=== PATIENT | male | born 1980 | race Caucasian/White ===

== ENCOUNTER 2016-08-22 01:08 | Inpatient (IN) | payer OTHER ==
--- NOTE | ~2016-08-22 | PA ---
Unit #: [id number] #: [id number] Patient: DIPTI GODWIN [id number] [facility] [address] [place] [address] [id number] I MR#: [id number] NAME: DIPTI GODWIN ROOM: P202 Age: 36 Sex: M Admission Date: 08/22/2016 : 1980 Date of Assessment: Attending Physician: Cole Landa M.D. Admitting Physician: Cole Landa M.D. Primary Care Physician: Primary Care Physician No PSYCHIATRIC ASSESSMENT INFORMANT The patient reliability, fair; chart reliability, good. CHIEF COMPLAINT Suicidal ideation and alcohol abuse. HISTORY OF PRESENT ILLNESS Mr. Ramos is a 36-year-old male, seen on . The patient has a history of previous inpatient treatment for suicidal ideation in 2012. The patient reported suicidal ideation with a plan to be hit by a car. The patient reported that he found by the EMS. The patient reported feeling of hopelessness and worthlessness. The patient reported having no family social support system. The patient reports his parents committed suicide several years ago. The patient reported history of suicide attempt, last attempt was 2012. The patient reports he drinks about a fifth of alcohol a day. The patient's . Currently, the patient has a history of alcohol withdrawal seizure denied any homicidal ideation or psychotic symptom, needing inpatient admission at this time for psychiatric stabilization. PAST PSYCHIATRIC HISTORY Remarkable for history of previous treatment as mentioned above. FAMILY HISTORY AND SOCIAL HISTORY History of suicide attempt in both parents. No history of any abuse. MEDICAL HISTORY Remarkable for history of seizure disorder. Musculoskeletal, muscle strength and tone, no atrophy or abnormal movement. Gait normal. MEDICATION HISTORY None. ALLERGIES No known drug allergies. SUBSTANCE ABUSE HISTORY The patient reported tobacco use, age of onset 14; alcohol, age of onset 17; and has tried LSD, synthetic drugs. The patient reports history of blackouts. No history of any HIV, hepatitis, or any withdrawal symptom at this time, but history of withdrawal seizures. No history of any IV drug use. Unit #: [id number] #: [id number] Patient: DIPTI GODWIN REVIEW OF SYSTEMS HEENT: Eyes, clear. Ears, nose, mouth, and throat; clear. CARDIOVASCULAR: Unremarkable. RESPIRATORY: Unremarkable. GI: Unremarkable. : Unremarkable. SKIN: Unremarkable. LYMPH NODE: Unremarkable. NEUROLOGIC: Unremarkable. ENDOCRINE: Unremarkable. HEMATOLOGIC: Unremarkable. ALLERGIC: Unremarkable. IMMUNOLOGIC: Unremarkable. MUSCULOSKELETAL: Muscle strength and tone, no atrophy or abnormal movement. Gait normal. MENTAL STATUS EXAMINATION CONSTITUTIONAL: Measurement of vital signs; temperature 98.4, pulse 77, respirations 20, and blood pressure 119/77, height 5 feet 4 inches, and weight 130 pounds. GENERAL APPEARANCE: The patient dressed casually. The patient did not show any facial deformity. MUSCULOSKELETAL: Please see above. PSYCHIATRIC EXAMINATION Description of speech; regular rate, normal volume. Description of thought process, goal directed. Description of association, intact. Description of abnormal psychotic thinking; the patient denied any hallucination or delusions, but mood lability, suicidal ideation, depression, substance abuse. Description of the patient's judgment, concerning everyday activity, poor. Social situation, poor. Concerning psychiatric condition, poor. Complete mental status examination; oriented in time, place, and person. Recent and remote memory, fair. Attention span and concentration, fair. Language, able to name object and repeat phrases. Fund of knowledge, aware of current event, passive vocabulary intact. Mood and affect, sad and dysphoric. Insight and judgment, fair to poor. ASSETS AND LIABILITIES Assets; the patient is articulate, able to take care of his ADL. Liability; history of substance abuse. ADMITTING DIAGNOSES Psychiatric: Major depressive disorder, recurrent, severe, F33.2; alcohol use disorder, severe, F10.20. Secondary diagnosis: Deferred. Medical diagnosis: History of seizure. Stressors: Psychosocial stressors. PSYCHIATRIC PLAN AND TREATMENT GOAL AND DISCHARGE PLAN 1. Advised to admit the patient on the inpatient unit. Provide safe, supportive, and structured environment. 2. Ordered labs; CBC, CMP, UA, and UDS. 3. Detox protocol and detox monitoring. The patient was started on Unit #: [id number] #: [id number] Patient: DIPTI GODWIN for sleep and Celexa for depression. We will continue to monitor if needed consider further adjustment of medication. 4. The patient to attend group therapy, individual therapy, chemical dependency group. 5. Treatment goal; to attain euthymic mood, gain insight into his problem, and learn coping skills. 6. Discharge plan; plan to stabilize the patient and consider followup in outpatient program. ESTIMATED LENGTH OF STAY 3 to 5 days. Dictated by... Abelardo Bello/yassine TD: 08/22/2016 22:04 JOB #: [id number] PSYCHIATRIC ASSESSMENT Page 1 of 1 X Cole Landa MD PSYCHIATRIC ASSESSMENT
--- NOTE | ~2016-08-22 | HP ---
Unit #: [id number] #: [id number] Patient: DIPTI GODWIN [id number] [place] [address] [id number] I MR#: [id number] NAME: DIPTI GODWIN ROOM: P202 Age: 36 Sex: M Admission Date: 08/22/2016 : 1980 Attending Physician: Cole Landa M.D. Admitting Physician: Cole Landa M.D. Primary Care Physician: Primary Care Physician No HISTORY AND PHYSICAL HISTORY OF PRESENT ILLNESS Dipti is a 36 year old admitted to [address] [place] [address] because of his abuse of alcohol. He is detoxing. PAST MEDICAL HISTORY 1. Long history of alcohol abuse. 2. History of withdrawal seizures. PAST SURGICAL HISTORY Nothing reported. ALLERGIES No known drug allergies. SOCIAL HISTORY Smokes one pack per day. Drinks a fifth of liquor on a daily basis. Denies illicit drug use. FAMILY HISTORY Medically noncontributory. REVIEW OF SYSTEMS CONSTITUTIONAL: No fever or chills. HEENT: Denies any sore throat, ear pain or runny nose. CARDIOVASCULAR: Denies chest pain, irregular heart rhythm or palpitations. CHEST: Denies shortness of breath or cough. No hemoptysis. GASTROINTESTINAL: Denies nausea, vomiting, diarrhea or chronic constipation. ENDOCRINE: Denies history of increased thirst or urination. No recent significant weight loss or gain. GENITOURINARY: Denies dysuria, frequency, or hematuria. SKIN: Denies any rashes. HEMATOLOGIC: Denies history of increased bleeding or bruising. MUSCULOSKELETAL: Denies any hot, swollen joints. No generalized muscle pain. NEUROLOGIC: Denies problems with vision or speech. No frequent, severe headaches. No numbness, tingling or weakness in any extremities. Denies loss of bladder or bowel control. CURRENT MEDICATIONS 1. Detox protocol 2. Desyrel 50 mg q.h.s. Unit #: [id number] #: [id number] Patient: DIPTI GODWIN 3. Celexa 20 mg q.h.s. PHYSICAL EXAMINATION GENERAL: Alert, well-nourished, in no apparent distress. VITAL SIGNS: Blood pressure 120/76, heart rate 80, respirations 16, temperature 98.6. WEIGHT: 130 pounds. HEIGHT: 5'4". SKIN: Warm and dry without rash or lesion. HEENT: Normocephalic. TMs not viewed. Oral and nasal passages clear. Conjunctivae clear. Pupils equal, round and reactive to light and accommodation. Extraocular movements intact. NECK: Supple without lymphadenopathy or thyromegaly. HEART: Regular rate and rhythm without murmur. LUNGS: Clear. ABDOMEN: Soft, nontender. : Not done. EXTREMITIES: No evidence of cyanosis, clubbing or edema. Moves all extremities without focal deficit. NEUROLOGICAL: Grossly within normal limits. Cranial Nerves: II: Visual sargent are intact. III, IV AND : Extraocular movements are intact. Pupils are equal, round and reactive to light. V: Facial sensation is grossly normal. VII: Facial movements and expression are normal. VIII: Auditory acuity grossly intact. IX, X: Uvula is midline. Phonation is normal. XI: Patient shrugs shoulders and turns head normally. XII: Tongue protrudes in the midline. Sensory and Motor Function: Sensory and motor sensation is grossly normal. Motor: moves all extremities well. Coordination: Gait is normal. Deep Tendon Reflexes: Intact. IMPRESSION Psychiatric admission RECOMMENDATIONS PSYCHIATRIC: Per psychiatrist. MEDICAL: I see no contraindications to participating in facility's activities. MEDICAL PROGNOSIS Good. MEDICAL CONDITION Stable. Dictated by... Bernarda FrenandoARosemary-Lisa. for Abelardo Rivas/juan TD: 08/22/2016 21:13 JOB #: [id number] Unit #: [id number] #: [id number] Patient: DIPTI GODWIN HISTORY AND PHYSICAL Page 1 of 1 X Emely Agee HISTORY AND PHYSICAL
--- NOTE | ~2016-08-22 | PN ---
Unit #: [id number] #: [id number] Patient: DIPTI GODWIN [id number] [facility] [address] [place] [address] [id number] I MR#: [id number] NAME: DIPTI GODWIN ROOM: P202 Age: 36 Sex: M Admission Date: 08/22/2016 : 1980 Attending Physician: Cole Landa M.D. Admitting Physician: Cole Landa M.D. Primary Care Physician: Primary Care Physician Gerri ZAMARRIPA PROGRESS NOTES DATE 08/24/2016 DISCUSSION Mr. Ramos is a 36-year-old male seen on 08/24/2016. Patient interviewed. Chart reviewed. Obtained information from nursing staff. Patient was isolative, guarded, flat affect. Patient was able to maintain safe behavior. Vital signs stable, 98.3, 83, 114/68. Patient reported making progress. Complete review of system unremarkable. MENTAL STATUS EXAMINATION General appearance, patient dressed casually. Attention span, concentration fair. Oriented in place and person. Mood and affect sad, dysphoric, flat affect, guarded. Patient denied any thoughts of harming self or others or any psychotic symptoms. Recent and remote memory poor. Insight and judgement poor. DIAGNOSES 1. Major depressive disorder, recurrent. 2. Alcohol use disorder, severe. ASSESSMENT/PLAN Advised to continue with current medication and therapeutic protocol. If needed, consider further adjustment of medication. Dictated by... Abelardo Bello/sidra TD: 08/25/2016 15:44 JOB #: [id number] Unit #: [id number] #: [id number] Patient: DIPTI GODWIN MARILOU PROGRESS NOTES Page 1 of 1 X Cole Landa MD X PROGRESS NOTE
--- NOTE | ~2016-08-22 | DS ---
Unit #: [id number] #: [id number] Patient: DIPTI GODWIN [id number] [facility] [address] [place] [address] [id number] I MR#: [id number] NAME: DIPTI GODWIN ROOM: [facility] Age: 36 Sex: M Admission Date: 08/22/2016 : 1980 Discharge Date: 08/25/2016 Attending Physician: Cole Landa M.D. DISCHARGE SUMMARY REASON FOR ADMISSION Suicidal ideation, detox, and depression. DIAGNOSTIC STUDIES LABORATORY RESULTS: Unremarkable. HOSPITAL COURSE The patient was admitted to inpatient unit on 08/22/2016 and discharged on 08/25/2016. The patient was treated on the inpatient unit with chemical dependency group, expressive therapy, medication management, psychotherapy, and psychoeducation. The patient responded well with the above modalities of treatment and following medication. DISCHARGE MEDICATIONS Celexa 20 mg daily for depression and trazodone 100 mg at bedtime for sleep. DISCHARGE DIAGNOSES Psychiatric: Major depressive disorder, recurrent, severe, F33.2 and alcohol use disorder, severe, F10.20. Secondary diagnosis: Deferred. Medical diagnosis: History of seizure. Stressors: Psychosocial stressors. DISCHARGE INSTRUCTIONS The patient to follow up in outpatient clinic as per social science manager. CONDITION ON DISCHARGE The patient was pleasant and cooperative. Denied any psychotic symptom or any suicidal ideation. PROGNOSIS Guarded. DIET AND ACTIVITY As tolerated. Dictated by... Cole Landa M.D. Unit #: [id number] #: [id number] Patient: DIPTI GODWIN JUSTOC/modl TD: 08/26/2016 18:07 JOB #: [id number] DISCHARGE SUMMARY Page 1 of 1 X Cole Landa MD X DISCHARGE SUMMARY
--- NOTE | ~2016-08-22 | PN ---
Unit #: [id number] #: [id number] Patient: DIPTI GODWIN [id number] [facility] [address] [place] [address] [id number] I MR#: [id number] NAME: DIPTI GODWIN ROOM: P202 Age: 36 Sex: M Admission Date: 08/22/2016 : 1980 Attending Physician: Cole Lanad M.D. Admitting Physician: Cole Landa M.D. Primary Care Physician: Primary Care Physician Gerri RODRIGUEZ NOTES DATE OF SERVICE: 08/23/2016 DISCUSSION Dipti is a 36-year-old male, seen on 08/23/2016. The patient interviewed, chart reviewed, and obtained information from nursing staff. The patient was compliant and cooperative. Mood was sad, dysphoric, flat affect, guarded. The patient reported having trouble falling asleep, staying asleep, seclusive, isolative. Complete review of systems unremarkable. MENTAL STATUS EXAMINATION General appearance, the patient dressed casually. Attention span and concentration, fair. Oriented in place and person. Mood and affect; sad, dysphoric, withdrawn. Speech, monotone. Thought process, concrete. The patient denied any thoughts of harming self or others, but guarded. Recent and remote memory, poor. Insight and judgment, poor. DIAGNOSES 1. Major depressive disorder, recurrent, severe. 2. Alcohol use disorder, severe. ASSESSMENT AND PLAN Advised to continue with current medication and therapeutic protocol. We will monitor response to medication and make further adjustment of medication. Dictated by... Abelardo Bello/yassine TD: 08/24/2016 14:27 JOB #: [id number] Unit #: [id number] #: [id number] Patient: DIPTI GODWIN MARILOU RODRIGUEZ NOTES Page 1 of 1 X Cole Landa MD PROGRESS NOTE
== END 2016-08-25 16:28 | disposition home or self-care (01) | DRG 885 ==
LOC: P2S 01:08
PROC: HZ2ZZZZ Detoxification Services for Substance Abuse Treatment (ICD-10-PCS; principal; 2016-08-22)
DX: F33.2 Major depressive disorder, recurrent severe without psychotic features (principal); F10.20 Alcohol dependence, uncomplicated; F17.200 Nicotine dependence, unspecified, uncomplicated
CPT/HCPCS: 86592

== ENCOUNTER 2016-12-02 19:00 | Inpatient (IN) | payer MEDICAID ==
[~2016-12-02] VITALS: Ht 165.1 cm; Wt 61.2 kg
--- NOTE | ~2016-12-02 | PN ---
Unit #: [id number] #: [id number] Patient: DIPTI GODWIN [id number] [place] [address] [id number] I MR#: [id number] NAME: DIPTI GODWIN ROOM: P173 Age: 36 Sex: M Admission Date: 12/03/2016 : 1980 Attending Physician: Cole Landa M.D. Admitting Physician: Cole Landa M.D. Primary Care Physician: Generic Doctor Not In System [facility] [employer] NOTES DATE OF SERVICE 12/05/2016 DISCUSSION Mr. Ramos is a 36-year-old male. The patient interviewed, chart reviewed. Obtained information from nursing staff. The patient was compliant, cooperative. Still isolative, guarded, flat affect. Sad, dysphoric mood, withdrawn, isolative. Tolerating medication fairly well. The patient's vital signs stable, 98.4, 95, 121/91. Complete Review of Systems: Unremarkable. MENTAL STATUS EXAMINATION General Appearance: The patient dressed casually. Attention span, concentration: Fair. Oriented in place and person. Mood and affect labile. Speech: Monotone. Thought process: [place]. The patient denied any thoughts of harming self or others but withdrawn, isolative, guarded. Still reporting having withdrawal symptoms from alcohol. MENTAL STATUS EXAMINATION General Appearance: The patient dressed casually. Attention span, concentration: Fair. Oriented in time, place, and person. Mood and affect labile. Speech: Monotone. Thought process: [place]. The patient denied any thoughts of harming self or others. Recent and remote memory: Poor. Insight and judgment: Poor. DIAGNOSES 1. Mood disorder not otherwise specified. 2. Alcohol use disorder, severe. ASSESSMENT/PLAN Advised to continue with current treatment on the inpatient unit. If needed, consider further adjustment of medication. Dictated by... Cole Landa M.D. NADER/ernie TD: 12/06/2016 09:04 JOB #: [id number] Unit #: [id number] #: [id number] Patient: DIPTI GODWIN [facility] PROGRESS NOTES Page 1 of 1 X Cole Landa MD NOTE
--- NOTE | ~2016-12-02 | PN ---
Unit #: [id number] #: [id number] Patient: DIPTI GODWIN [id number] [facility] [address] [place] [address] [id number] I MR#: [id number] NAME: DIPTI GODWIN ROOM: 73 Age: 36 Sex: M Admission Date: 12/03/2016 : 1980 Attending Physician: Cole Landa M.D. Admitting Physician: Cole Landa M.D. Primary Care Physician: Generic Doctor Not In System [facility] PROGRESS NOTES DATE 12/04/2016 DISCUSSION Mr. Ramos is a 36-year-old male seen on 12/04/2016. The patient interviewed, chart reviewed. Obtained information from nursing staff. The patient was compliant and cooperative. Mood sad, dysphoric, flat affect, withdrawn, isolative. The patient still reporting feeling sad, depressed. The patient tolerating medication fairly well but still withdrawn, isolative, guarded. Complete review of systems unremarkable. MENTAL STATUS EXAMINATION General appearance, the patient dressed casually. Attention span and concentration fair. Oriented to place and person. Mood and affect sad, depressed having passive SI, withdrawn, isolative. Recent and remote memory poor. Insight and judgement poor. The patient having passive SI. DIAGNOSES 1. Major depressive disorder recurrent severe. 2. Alcohol use disorder severe. The patient is still having withdrawal symptoms. Therefore continue with the current detox protocol. The patient vital signs are 98.7, 97, 129/87. ASSESSMENT/PLAN Advise to continue with current medication and therapeutic protocol. If needed consider further adjustment of medication. Dictated by... Abelardo Bello/juan TD: 12/05/2016 23:42 JOB #: [id number] Unit #: [id number] #: [id number] Patient: DIPTI GODWIN [facility] PROGRESS NOTES Page 1 of 1 X Cole Landa MD PROGRESS NOTE
--- NOTE | ~2016-12-02 | PN ---
Unit #: [id number] #: [id number] Patient: DIPTI GODWIN [id number] [facility] [address] [place] [address] [id number] MR#: [id number] NAME: DIPTI GODWIN ROOM: P173 Age: 36 Sex: M Admission Date: 12/03/2016 : 1980 Attending Physician: Cole Landa M.D. Admitting Physician: Cole Landa M.D. Primary Care Physician: Generic Doctor Not In System [facility] PROGRESS NOTES DATE 12/09/2016 DISCUSSION Mr. Ramos is a 36-year-old male, seen on 12/09/2016. The patient interviewed, chart reviewed, and obtained information from the nursing staff. The patient wants larger portions. The patient reports that he is feeling better, still isolative, guarded, flat affect, sad and dysphoric, currently receiving antibiotic for his chest infection. REVIEW OF SYSTEMS Complete review of systems unremarkable. MENTAL STATUS EXAMINATION General appearance: Patient dressed casually. Attention span and concentration, fair. Oriented in time, place, and person. Mood and affect, sad and dysphoric, flat affect. Speech, regular rate. Thought process, goal-directed. The patient denied any thoughts of harming self or others but still seclusive, isolative, guarded. Recent and remote memory, poor. Insight and judgment, poor. DIAGNOSES 1. Alcohol use disorder, severe. 2. Mood disorder, NOS. ASSESSMENT/PLAN Advised to continue with the current medication and therapeutic protocol, and if needed consider further adjustment of medication. Dictated by... Abelardo Bello/kieran TD: 12/11/2016 07:33 JOB #: [id number] Unit #: [id number] #: [id number] Patient: DIPTI GODWIN [facility] PROGRESS NOTES Page 1 of 1 X Cole Landa MD PROGRESS NOTE
--- NOTE | ~2016-12-02 | PA ---
Unit #: [id number] #: [id number] Patient: DIPTI GODWIN [id number] [facility] [address] [place] [address] [id number] I MR#: [id number] NAME: DIPTI GODWIN ROOM: P173 Age: 36 Sex: M Admission Date: 12/03/2016 : 1980 Date of Assessment: 12/03/2016 Attending Physician: Cole Landa M.D. Admitting Physician: Cole Landa M.D. Primary Care Physician: Generic Doctor Not In System PSYCHIATRIC ASSESSMENT DATE OF SERVICE 12/03/2016. INFORMANTS The patient's reliability, fair; chart reliability, good. CHIEF COMPLAINT Alcohol abuse, depression. HISTORY OF PRESENT ILLNESS Mr. Ramos is a 36-year-old male, last admitted on 08/22 with suicidal ideation and depression, presented with the above-mentioned complaint. The patient reported drinking as a mean to cope loneliness, depression, feeling hopeless and worthless. Reported drinking half a gallon of vodka yesterday and woke up in the midafternoon behind bushes. The patient reports that he has withdrawal seizure. But has not been able to fill his prescription. The patient reported in the emergency room wanted to detox and get some help. The patient denied any suicidal ideation or homicidal ideation, but sad and depressed. The patient needing inpatient admission at this time for psychiatric stabilization. The patient reported tobacco use, age of onset 14; alcohol, age of onset 17; marijuana, age of onset 17; synthetic drugs, spice recent use; longest period of sobriety, 18 months; last period of sobriety, 11/24/2016. 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 The patient reported history of blackout. No history of HIV, hepatitis. No history of any IV drug abuse. Reported nervousness, tremor, has withdrawal symptom muscle cramping, diarrhea, poor concentration. Needing inpatient admission at this time for psychiatric stabilization. PAST PSYCHIATRIC HISTORY Remarkable for history of previous treatment at [facility] as mentioned above. FAMILY HISTORY AND SOCIAL HISTORY Poor support system, unemployed. No history of any abuse. The patient reported history of substance abuse in mom and dad. No legal charges. MEDICAL HISTORY Remarkable for history of withdrawal seizures, history of scoliosis. Musculoskeletal; muscle strength and tone, no atrophy or abnormal movement. Gait normal. MEDICATION HISTORY Unit #: [id number] #: [id number] Patient: DIPTI GODWIN None. ALLERGIES No known drug allergies. SUBSTANCE ABUSE HISTORY Please see above. REVIEW OF SYSTEMS HEENT: Eyes, clear. Ears, nose, mouth, and throat; clear. CARDIOVASCULAR: Unremarkable. RESPIRATORY: Unremarkable. GI: Unremarkable. : Unremarkable. SKIN: Unremarkable. LYMPH NODE: Unremarkable. NEUROLOGIC: Unremarkable. ENDOCRINE: Unremarkable. HEMATOLOGIC: Unremarkable. ALLERGIC/IMMUNOLOGIC: Unremarkable. MUSCULOSKELETAL: Muscle strength and tone, no atrophy or abnormal movement. Gait normal. MENTAL STATUS EXAMINATION CONSTITUTIONAL: Measurement of vital signs; temperature is 98.1, heart rate 101, respiratory rate 13, blood pressure 141/86, height 5 feet 5 inches, weight 135 pounds. GENERAL APPEARANCE: The patient dressed casually. No facial deformity noted. MUSCULOSKELETAL: Please see above. PSYCHIATRIC EXAMINATION Description of speech; slow in volume and rate. Description of thought process, goal directed. Description of association, intact. Description of abnormal psychotic thinking; depression, suicidal ideation, mood lability. Denied any homicidal ideation or substance abuse. Description of the patient's judgment; concerning everyday activity, poor. Social situation, poor. Concerning psychiatric condition, poor. Complete mental status examination; oriented in time, place, and person. Recent and remote memory, fair. Attention span and concentration, fair. Language, able to name object and repeat phrases. Fund of knowledge, aware of current event and passive vocabulary intact. Mood and affect, sad and dysphoric. Insight and judgment, fair to poor. ASSETS AND LIABILITIES Assets, the patient is articulate and able to take care of his ADL. Liability, history of depression, suicidal ideation, and substance abuse. ADMITTING DIAGNOSES Psychiatric: Major depressive disorder, recurrent, severe, F33.2; alcohol use disorder, severe, F10.20. Secondary diagnosis: Deferred. Medical diagnosis: History of withdrawal seizures, obesity. Stressors: Psychosocial stressor, unemployment, housing problem. Unit #: [id number] #: [id number] Patient: DIPTI GODWIN PSYCHIATRIC PLAN 1. Advised to admit the patient on the inpatient unit. Provide safe, supportive, and structured environment. 2. Ordered labs; CBC, CMP, UA, and UDS. 3. Detox protocol and detox monitoring. The patient to be monitored closely and consider medication such as SSRI. If needed, Celexa and trazodone. The patient to attend all the programming in group therapy, individual therapy, chemical dependency group. TREATMENT GOAL To attain euthymic mood, gain insight into his problem, and learn coping skills. DISCHARGE PLAN Plan to stabilize the patient and consider followup in outpatient program. ESTIMATED LENGTH OF STAY 5 days. Dictated by... Cole Landa M.D. NADER/yassine TD: 12/04/2016 03:41 JOB #: [id number] PSYCHIATRIC ASSESSMENT Page 1 of 1 X Cole Landa MD X PSYCHIATRIC ASSESSMENT
--- NOTE | ~2016-12-02 | PN ---
Unit #: [id number] #: [id number] Patient: DIPTI GODWIN [id number] [facility] [address] [place] [address] [id number] MR#: [id number] NAME: DIPTI GODWIN ROOM: 73 Age: 36 Sex: M Admission Date: 12/03/2016 : 1980 Attending Physician: Cole Landa M.D. Admitting Physician: Cole Landa M.D. Primary Care Physician: Generic Doctor Not In System [facility] PROGRESS NOTES DATE 12/10/2016 DISCUSSION Dipti is a 36-year-old male, seen on 12/10/2016. The patient interviewed, chart reviewed, and obtained information from the nursing staff. The patient was compliant and cooperative, overall maintained safe behavior, compliant and cooperative. Vital signs stable at 98.4, 108, 126/87. REVIEW OF SYSTEMS Complete review of systems unremarkable. MENTAL STATUS EXAMINATION General appearance: Patient dressed casually. Attention span and concentration, fair. Oriented in time, place, and person. Mood and affect, labile. Speech, monotone. Thought process, concrete. The patient denied any thoughts of harming self or others. Recent and remote memory, poor. Insight and judgment, poor. DIAGNOSES 1. Alcohol use disorder, severe. 2. Mood disorder, NOS. ASSESSMENT/PLAN Advised to continue with the current medication and therapeutic protocol, and if needed consider further adjustment of medication. Dictated by... Abelardo Bello/kieran TD: 12/12/2016 06:28 JOB #: [id number] Unit #: [id number] #: [id number] Patient: DIPTI GODWIN [facility] PROGRESS NOTES Page 1 of 1 X Cole Landa MD X PROGRESS NOTE
--- NOTE | ~2016-12-02 | DS ---
Unit #: [id number] #: [id number] Patient: DIPTI GODWIN [id number] [place] [address] [id number] I MR#: [id number] NAME: DIPTI GODWIN ROOM: P173 Age: 36 Sex: M Admission Date: 12/03/2016 : 1980 Discharge Date: 12/11/2016 Attending Physician: Cole Landa M.D. Primary Care Physician: Generic Doctor Not In System DISCHARGE SUMMARY REASON FOR ADMISSION Alcohol abuse and depression. DIAGNOSTIC STUDIES LABORATORY RESULTS: Unremarkable except BUN 8, AST 84, ALT 48. HOSPITAL COURSE The patient was admitted to inpatient unit on 12/03/2016 and discharged on 12/11/2016. The patient was treated on the inpatient unit with detox protocol, detox monitoring, chemical dependency group, expressive therapy, psychoeducation, psychotherapy. The patient was also treated for upper respiratory tract infection. The patient responded well. Subsequently, the patient was discharged with a plan to follow up in outpatient program. DISCHARGE MEDICATIONS Trazodone 100 mg at bedtime for sleep, Celexa 20 mg daily for depression, Humibid LA 600 mg b.i.d. for upper respiratory tract infection, Zithromax as directed for upper respiratory tract infection, and Claritin 10 mg daily for allergies. DISCHARGE DIAGNOSES Psychiatric: Major depressive disorder, recurrent, severe, F33.2; alcohol use disorder, severe, F10.20. Secondary diagnosis: Deferred. Medical diagnosis: History of withdrawal seizure and obesity. Stressors: Psychosocial stressor, unemployment, housing problem. DISCHARGE INSTRUCTIONS The patient to follow up in outpatient clinic as per bilingual social worker. CONDITION ON DISCHARGE The patient was pleasant and cooperative. Denied any psychotic symptom or any suicidal ideation. PROGNOSIS Guarded. DIET AND ACTIVITY As tolerated. Unit #: [id number] #: [id number] Patient: DIPTI GODWIN Dictated by... Abelardo Bello/yassine TD: 12/11/2016 16:51 JOB #: [id number] DISCHARGE SUMMARY Page 1 of 1 X Cole Landa MD DISCHARGE SUMMARY
--- NOTE | ~2016-12-02 | PN ---
Unit #: [id number] #: [id number] Patient: DIPTI GODWIN [id number] [facility] [address] [place] [address] [id number] I MR#: [id number] NAME: DIPTI GODWIN ROOM: 73 Age: 36 Sex: M Admission Date: 12/03/2016 : 1980 Attending Physician: Cole Landa M.D. Admitting Physician: Cole Landa M.D. Primary Care Physician: Generic Doctor Not In System [facility] PROGRESS NOTES DATE OF SERVICE 12/07/2016 DISCUSSION Mr. Ramos is a 36-year-old male. The patient interviewed, chart reviewed. Obtained information from nursing staff. The patient reported that he is feeling better. Decrease in anxiety and depression. The patient reports withdrawal symptoms are getting better. The patient started on antibiotic for chest infection. The patient is compliant, cooperative. The patient's vital signs: 98.4, 80, 97/69. Complete Review of Systems: Unremarkable. MENTAL STATUS EXAMINATION General Appearance: The patient dressed casually. Attention span, concentration: Fair. Oriented in time, place, and person. Mood and affect labile. Speech: Monotone. Thought process: [place]. The patient denied any thoughts of harming self or others. Recent and remote memory: Poor. Insight and judgment: Poor. DIAGNOSES 1. Major depressive disorder, recurrent. 2. Alcohol use disorder, severe. ASSESSMENT/PLAN Advised to continue with current medication and therapeutic protocol. If needed, consider further adjustment of medication. Dictated by... Abelardo Bello/ernie TD: 12/08/2016 12:07 JOB #: [id number] Unit #: [id number] #: [id number] Patient: DIPTI GODWIN PROGRESS NOTES Page 1 of 1 X Cole Landa MD X PROGRESS NOTE
--- NOTE | ~2016-12-02 | PN ---
Unit #: [id number] #: [id number] Patient: DIPTI GODWIN [id number] [facility] [address] [place] [address] [id number] I MR#: [id number] NAME: DIPTI GODWIN ROOM: 73 Age: 36 Sex: M Admission Date: 12/03/2016 : 1980 Attending Physician: Cole Landa M.D. Admitting Physician: Cole Landa M.D. Primary Care Physician: Generic Doctor Not In System [facility] PROGRESS NOTES DATE 12/08/2016 DISCUSSION Mr. Ramos is a 36-year-old male. The patient interviewed, chart reviewed. Obtained information from nursing staff. The patient was continues to report feeling sad, depressed, anxious. The patient reported that he is not quite ready at this time to go home, still having symptoms of depression, anxiety. Complete review of systems unremarkable. MENTAL STATUS EXAMINATION General appearance, the patient dressed casually. Attention span and concentration fair. Oriented to place and person. Mood and affect sad, dysphoric, speech monotone. Thought process concrete. The patient denied any thoughts of harming self or others but sad, depressed, anxious. Recent and remote memory poor. Insight and judgement poor. DIAGNOSES 1. Mood disorder NOS 2. Alcohol use disorder severe ASSESSMENT/PLAN Advise to continue with current medication and therapeutic protocol. If needed consider further adjustment of medication. Dictated by... Abelardo Bello/juan TD: 12/10/2016 23:49 JOB #: [id number] Unit #: [id number] #: [id number] Patient: DIPTI GODWIN [facility] PROGRESS NOTES Page 1 of 1 X Cole Landa MD PROGRESS NOTE
--- NOTE | ~2016-12-02 | HP ---
Unit #: [id number] #: [id number] Patient: DIPTI GODWIN [id number] [place] [address] [id number] I MR#: [id number] NAME: DIPTI GODWIN ROOM: P173 Age: 36 Sex: M Admission Date: 12/03/2016 : 1980 Attending Physician: Cole Landa M.D. Admitting Physician: Cole Landa M.D. Primary Care Physician: Generic Doctor Not In System HISTORY AND PHYSICAL HISTORY OF PRESENT ILLNESS The patient is a 36-year-old female admitted to [facility] on 12/03/2016 to detox from alcohol and for psychosis. PAST MEDICAL HISTORY 1. Withdrawal seizures. 2. Scoliosis. PAST SURGICAL HISTORY None noted. SOCIAL HISTORY He is unemployed and homeless. He smokes one-half pack of cigarettes daily. Drinks half gallon per day. FAMILY MEDICAL HISTORY Noncontributory. ALLERGIES No known drug allergies. CURRENT MEDICATIONS The patient is not on any home medications. REVIEW OF SYSTEMS CONSTITUTIONAL: No fever or chills. HEENT: Denies any sore throat, ear pain or runny nose. CARDIOVASCULAR: Denies chest pain, irregular heart rhythm or palpitations. CHEST: Denies shortness of breath or cough. No hemoptysis. GASTROINTESTINAL: Denies nausea, vomiting, diarrhea or chronic constipation. ENDOCRINE: Denies history of increased thirst or urination. No recent significant weight loss or gain. GENITOURINARY: Denies dysuria, frequency, or hematuria. SKIN: Denies any rashes. HEMATOLOGIC: Denies history of increased bleeding or bruising. MUSCULOSKELETAL: Denies any hot, swollen joints. No generalized muscle pain. NEUROLOGIC: Denies problems with vision or speech. No frequent, severe headaches. No numbness, tingling or weakness in any extremities. Denies loss of bladder or bowel control. PHYSICAL EXAM Unit #: [id number] #: [id number] Patient: DIPTI GODWIN GENERAL: He is awake, alert and oriented in no acute distress. VITAL SIGNS: Temperature 98.1, heart rate 101, respiration 13, blood pressure 141/86. HEIGHT: 5'5". WEIGHT: 135 pounds. SKIN: Warm and dry without rash or lesion. HEENT: Normocephalic. TMs not viewed. Oral and nasal passages clear. Conjunctivae clear. PERRLA. EOMs intact. NECK: Supple without lymphadenopathy or thyromegaly. HEART: Regular rate and rhythm without murmur. LUNGS: Clear. ABDOMEN: Soft, nontender. : Not done. EXTREMITIES: No evidence of cyanosis, clubbing or edema. Moves all without focal deficit. NEUROLOGICAL: Grossly within normal limits. Cranial Nerves: II: Visual sargent are intact. III, IV AND : Extraocular movements are intact. Pupils are equal, round and reactive to light. V: Facial sensation is grossly normal. VII: Facial movements and expression are normal. VIII: Auditory acuity grossly intact. IX, X: Uvula is midline. Phonation is normal. XI: Patient shrugs shoulders and turns head normally. XII: Tongue protrudes in the midline. Sensory and Motor Function: Sensory and motor sensation is grossly normal. Motor: moves all extremities well. IMPRESSION 1. Psychiatric admission. 2. Withdrawal seizures. 3. Scoliosis. RECOMMENDATIONS Psychiatric per psychiatrist. MEDICAL: No contraindication to participate in facility activities. MEDICAL PROGNOSIS Good. MEDICAL CONDITION Stable. Dictated by... Amy Bee/juan TD: 12/04/2016 01:35 JOB #: [id number] Unit #: [id number] #: [id number] Patient: DIPTI GODWIN HISTORY AND PHYSICAL Page 1 of 1 X NICOLE DORAN APRN HISTORY AND PHYSICAL
--- NOTE | ~2016-12-02 | PN ---
Unit #: [id number] #: [id number] Patient: DIPTI GODWIN [id number] [facility] [address] [place] [address] [id number] I MR#: [id number] NAME: DIPTI GODWIN ROOM: P173 Age: 36 Sex: M Admission Date: 12/03/2016 : 1980 Attending Physician: Cole Landa M.D. Admitting Physician: Cole Landa M.D. Primary Care Physician: Generic Doctor Not In System [facility] PROGRESS NOTES DATE OF SERVICE: 12/06/2016 DISCUSSION Mr. Ramos is a 36-year-old male. The patient interviewed, chart reviewed, and obtained information from nursing staff. The patient reports feeling better, but still isolative, guarded, and flat affect, sad and dysphoric mood. The patient's vital signs; temperature 98.4, pulse 85, blood pressure 97/67. The patient still sad and depressed, but denied any thoughts of harming self or others. Complete review of systems unremarkable. MENTAL STATUS EXAMINATION General appearance, the patient dressed casually. Attention span and concentration, fair. Oriented in time, place, and person. Mood and affect, labile. Speech, monotone. Thought process, concrete. The patient denied any thoughts of harming self or others. Recent and remote memory, poor. Insight and judgment, poor. DIAGNOSES 1. Major depressive disorder, recurrent, severe. 2. Alcohol use disorder, severe. ASSESSMENT AND PLAN Advised to continue with current medication and therapeutic protocol. If needed, consider further adjustment of medication. Dictated by... Abelardo Bello/yassine TD: 12/06/2016 18:33 JOB #: [id number] Unit #: [id number] #: [id number] Patient: DIPTI GODWIN [facility] PROGRESS NOTES Page 1 of 1 X Cole Landa MD PROGRESS NOTE
--- NOTE | ~2016-12-02 | CO ---
Unit #: [id number] #: [id number] Patient: DIPTI GODWIN [id number] [place] [address] [id number] I MR#: [id number] NAME: DIPTI GODWIN ROOM: 73 Age: 36 Sex: M Admission Date: 12/03/2016 : 1980 Attending Physician: Cole Landa M.D. Primary Care Physician: Maile Doctor Not In System Consultation Date: 12/06/2016 CONSULTATION REPORT HISTORY OF PRESENT ILLNESS Dipti is a 36-year-old male, who has complaints of cough and chest congestion for the past week. He reports he is coughing up so much that is causing pain in his ribs and also occasionally causes him to vomit. He has green mucus production. He has also had a runny nose, and is now hoarse. He also is having a sore throat. He has not had any fever that he is aware of and has not been taking any medications for this. He is currently living at [facility]. He has not been on any antibiotics in the past year. He has no other complaints. PHYSICAL EXAMINATION CARDIAC: Regular rate and rhythm. No murmurs, gallops, or rubs. RESPIRATORY: Clear to auscultation bilaterally. ASSESSMENT AND PLAN Upper respiratory tract infection. We will begin azithromycin 500 mg p.o. on day one and then 250 x5 days. We will also begin Mucinex 600 mg p.o. q.12 hours. Please notify if symptoms are unresolved. Dictated by... Amy Brito/yassine TD: 12/07/2016 02:22 JOB #: [id number] CONSULTATION REPORT Page 1 of 1 X SAHIL PATRICIA APRN X CONSULTATION REPORT
--- NOTE | ~2016-12-02 | PN ---
Unit #: [id number] #: [id number] Patient: DIPTI GODWIN [id number] [facility] [address] [place] [address] [id number] MR#: [id number] NAME: DIPTI GODWIN ROOM: P173 Age: 36 Sex: M Admission Date: 12/03/2016 : 1980 Attending Physician: Cole Landa M.D. Admitting Physician: Abelardo Bello PROGRESS NOTES DATE OF SERVICE: 12/08/2016 DISCUSSION Mr. Ramos is a 36-year-old male. The patient interviewed, chart reviewed, and obtained information from nursing staff. The patient continues to report feeling sad, depressed, anxious. The patient reported that he is not quite ready at this time to go home, still having symptoms of depression and anxiety. Complete review of systems unremarkable. MENTAL STATUS EXAMINATION General appearance, the patient dressed casually. Attention span and concentration, fair. Oriented in place and person. Mood and affect, sad and dysphoric. Speech, monotone. Thought process, concrete. The patient denied any thoughts of harming self or others, but sad, depressed, and anxious. Recent and remote memory, poor. Insight and judgment, poor. DIAGNOSES Mood disorder, not otherwise specified; alcohol use disorder, severe. ASSESSMENT AND PLAN Advised to continue with current medication and therapeutic protocol. If needed, consider further adjustment of medication. Dictated by... Abelardo Bello/yassine TD: 12/10/2016 22:55 JOB #: [id number] [facility] PROGRESS NOTES Page 1 of 1 X Cole Landa MD PROGRESS NOTE
[2016-12-04 09:29] LABS: BASOPHIL% 0.9 % (0-2.5); EOSINOPHIL# 0.1 X10e3 (0-0.7); EOSINOPHIL% 1.5 % (0.0-7.0); HEMATOCRIT 47.8 % (38.0-50.0); HEMOGLOBIN 15.6 gm/dL (13.0-16.0); LYMPHOCYTE# 1.8 X10e3 (1.0-3.5); LYMPHOCYTE% 32.1 % (17.0-45.0); MEAN CELL VOLUME 97.7 FL (83-96); MEAN CORPUSCULAR HEMOGLOBIN 31.9 PG (28-34); MEAN CORPUSCULAR HGB CONC 32.7 g/dL (30-36); MEAN PLATELET VOLUME 8.1 FL (6.5-11.5); MONOCYTE# 0.9 X10e3 (0-1.0); MONOCYTE% 16.1 % (3.0-12.0); NEUTROPHIL# 2.8 X10e3 (1.5-7.1); NEUTROPHIL% 49.4 % (40-75); PLATELET COUNT 190 X10e3 (140-420); RED BLOOD COUNT 4.89 X10e (3.90-5.60); RED CELL DISTRIBUTION WIDTH 15.4 % (11.0-15.5); WHITE BLOOD COUNT 5.6 X10e3 (4.0-10.5)
[2016-12-04 09:37] LABS: DIFF IND NO
[2016-12-04 09:45] LABS: ALBUMIN SERUM 4.5 g/dL (3.5-5.0); BILIRUBIN,TOTAL 0.9 mg/dL (0.2-2.0); BUN/CREATININE RATIO 13.33; CALCIUM SERUM 10.1 mg/dL (8.4-10.2); CREATININE SERUM 0.6 mg/dL (0.6-1.4); GLOM FILT RATE Estimated 130.3 mL/min (>60); POTASSIUM 4.2 mmol/L (3.5-5.1); PROTEIN TOTAL SERUM 7.6 g/dL (6.0-8.3)
[2016-12-06 10:12] LABS: URINE APPEARANCE CLEAR; URINE BILIRUBIN NEG (NEG); URINE BLOOD NEG (NEG); URINE COLOR DK YELLOW; URINE GLUCOSE NEG (NEG); URINE KETONE NEG (NEG); URINE LEUKOCYTE ESTERASE NEG (NEG); URINE NITRATE NEG (NEG); URINE PROTEIN 1+ (NEG); URINE SPECIFIC GRAVITY 1.016 (1.003-1.035)
[2016-12-06 10:16] LABS: U HYALINE CASTS AUWI 0-2 /[LPF]; URBCS1 AUWI 0-2 /[HPF] (0-2); URINE BACTERIA AUWI NEG (NEGATIVE); URINE SQUAMOUS EPITHELIAL CELL NONE SEEN /[HPF]; UWBCS1 AUWI 0-2 (0-5)
[2016-12-06 10:40] LABS: AMPHETAMINE NEG (NEG); BARBITURATES NEG (NEG); BENZODIAZEPINES POS (NEG); COCAINE NEG (NEG); MARIJUANA NEG (NEG); OPIATES NEG (NEG); TRICYCLIC ANTIDEPRESSANTS NEG (NEG); U METHADONE NEG (NEG)
[2016-12-06 11:25] LABS: CULTURE INDICATED? NO
== END 2016-12-11 09:19 | DRG 885 ==
LOC: P1E 12-03 01:40
PROVIDERS: Psychiatry & Neurology Psychiatry
PROC: HZ2ZZZZ Detoxification Services for Substance Abuse Treatment (ICD-10-PCS; principal; 2016-12-03)
DX: F33.2 Major depressive disorder, recurrent severe without psychotic features (principal); M41.9 Scoliosis, unspecified; F10.20 Alcohol dependence, uncomplicated; E66.9 Obesity, unspecified; Z56.0 Unemployment, unspecified; Z59.0 Homelessness; J06.9 Acute upper respiratory infection, unspecified; F41.9 Anxiety disorder, unspecified
CPT/HCPCS: 80053; 80307; 81003; 85025

== ENCOUNTER 2016-12-14 05:00 | Inpatient (IN) | payer OTHER ==
[~2016-12-14] VITALS: Ht 167.6 cm; Wt 61.2 kg
--- NOTE | ~2016-12-14 | PN ---
Unit #: [id number] #: [id number] Patient: DIPTI GODWIN [id number] [facility] [address] [place] [address] [id number] I MR#: [id number] NAME: DIPTI GODWIN ROOM: 83 Age: 36 Sex: M Admission Date: 12/14/2016 : 1980 Attending Physician: Cole Landa M.D. Admitting Physician: Cole Landa M.D. Primary Care Physician: Generic Doctor Not In System [facility] PROGRESS NOTES DATE 12/16/2016 DISCUSSION Mr. Ramos is a 36-year-old male, seen on 12/16/2016. The patient interviewed, chart reviewed, and obtained information from the nursing staff. The patient reports still having a lot of tremors, the patient had gross tremors. Vital signs, 97.9, blood pressure 134/91, pulse 86. REVIEW OF SYSTEMS Complete review of systems unremarkable. MENTAL STATUS EXAMINATION General appearance: Patient dressed casually. Attention span and concentration, fair. Oriented in place and person. Mood and affect, sad, dysphoric, anxious. Speech, monotone. Thought process, concrete. The patient denied any thoughts of harming self or others but guarded having above mentioned symptoms. Recent and remote memory, poor. Insight and judgment, poor. DIAGNOSES 1. Alcohol use disorder, severe. 2. Mood disorder, NOS. ASSESSMENT/PLAN Advised to continue with the current medication and therapeutic protocol, and if needed consider further adjustment of medication. Dictated by... Abelardo Bello/kieran TD: 12/18/2016 05:57 JOB #: [id number] Unit #: [id number] #: [id number] Patient: DIPTI GODWIN [facility] PROGRESS NOTES Page 1 of 1 X Cole Landa MD X PROGRESS NOTE
--- NOTE | ~2016-12-14 | DS ---
Unit #: [id number] #: [id number] Patient: DIPTI GODWIN [id number] [facility] [address] [place] [address] [id number] MR#: [id number] NAME: DIPTI GODWIN ROOM: [facility] Age: 36 Sex: M Admission Date: 12/14/2016 : 1980 Discharge Date: 12/19/2016 Attending Physician: Cole Landa M.D. Primary Care Physician: Generic Doctor Not In System DISCHARGE SUMMARY REASON FOR ADMISSION Detox alcohol. DIAGNOSTIC STUDIES LABORATORY RESULTS: Unremarkable AST 84, ALT 48. HOSPITAL COURSE The patient was admitted to inpatient unit on 12/14/2016 and discharged on 12/19/2016. The patient was treated on the inpatient unit with detox protocol, detox monitoring, chemical dependency group, expressive therapy, medication management, psychoeducation, psychotherapy, and structured milieu. The patient was responsive to treatment. Subsequently, the patient was discharged with a plan to follow up in outpatient program. DISCHARGE MEDICATIONS Celexa 20 mg at bedtime for depression and trazodone 150 mg at bedtime for sleep. DISCHARGE DIAGNOSES Psychiatric: Alcohol use disorder, severe, F10.20; major depressive disorder, recurrent, severe, F33.2. Secondary diagnosis: Deferred. Medical diagnosis: History of withdrawal seizure and obesity. Stressors: Psychosocial stressor, unemployment, housing problem. DISCHARGE INSTRUCTIONS The patient to follow up in outpatient clinic as per home health care social worker. CONDITION ON DISCHARGE The patient was pleasant and cooperative. Denied any psychotic symptom or any suicidal ideation. PROGNOSIS Guarded. DIET AND ACTIVITY As tolerated. Dictated by... Unit #: [id number] #: [id number] Patient: DIPTI GODWIN Abelardo Bello/yassine TD: 12/20/2016 02:27 JOB #: [id number] DISCHARGE SUMMARY Page 1 of 1 X Cole Landa MD X DISCHARGE SUMMARY
--- NOTE | ~2016-12-14 | HP ---
Unit #: [id number] #: [id number] Patient: DIPTI GODWIN [id number] [facility] [address] [place] [address] [id number] I MR#: [id number] NAME: DIPTI GODWIN ROOM: 83 Age: 36 Sex: M Admission Date: 12/14/2016 : 1980 Attending Physician: Cole Landa M.D. Admitting Physician: Cole Landa M.D. Primary Care Physician: Generic Doctor Not In System HISTORY AND PHYSICAL The patient is a 36-year-old male admitted to [facility] on 12/14/2016 to detox from alcohol. Patient had a recent admission on 12/03/2016 where a full history and physical was completed. That history and physical has been reviewed. No changes need to be made. Dictated by... Amy Bee/sidra TD: 12/14/2016 23:06 JOB #: [id number] HISTORY AND PHYSICAL Page 1 of 1 X NICOLE DORAN APRN X HISTORY AND PHYSICAL
--- NOTE | ~2016-12-14 | PN ---
Unit #: [id number] #: [id number] Patient: DIPTI GODWIN [id number] [facility] [address] [place] [address] [id number] I MR#: [id number] NAME: DIPTI GODWIN ROOM: 83 Age: 36 Sex: M Admission Date: 12/14/2016 : 1980 Attending Physician: Cole Landa M.D. Admitting Physician: Cole Landa M.D. Primary Care Physician: Generic Doctor Not In System [facility] PROGRESS NOTES DATE OF SERVICE 12/17/2016 DISCUSSION Mr. Ramos is a 36-year-old male. Patient interviewed, chart reviewed. Obtained information from nursing staff. Patient compliant and cooperative. Vital signs 98.4, 108, blood pressure 137/97. The patient is still very anxious, nervous, having hand tremors, still having withdrawals from alcohol. Sad, depressed, mood. Complete review of systems unremarkable. MENTAL STATUS EXAMINATION General appearance, patient dressed casually. Attention span and concentration fair. Oriented to place and person. Mood and affect labile. Speech monotone. Thought process concrete. Patient denied any thoughts of harming self or others. Recent and remote memory poor. Insight and judgement poor. DIAGNOSES 1. Alcohol use disorder severe. 2. Mood disorder NOS. ASSESSMENT/PLAN Advise to continue with current medication and therapeutic protocol. If needed consider further adjustment of medication. Dictated by... Abelardo Bello/juan TD: 12/19/2016 04:41 JOB #: [id number] Unit #: [id number] #: [id number] Patient: DIPTI GODWIN [facility] PROGRESS NOTES Page 1 of 1 X Cole Lnada MD X PROGRESS NOTE
--- NOTE | ~2016-12-14 | PN ---
Unit #: [id number] #: [id number] Patient: DIPTI GODWIN [id number] [facility] [address] [place] [address] [id number] I MR#: [id number] NAME: DIPTI GODWNI ROOM: 83 Age: 36 Sex: M Admission Date: 12/14/2016 : 1980 Attending Physician: Cole Landa M.D. Admitting Physician: Cole Landa M.D. Primary Care Physician: Generic Doctor Not In System [facility] PROGRESS NOTES DATE OF SERVICE 12/18/2016 DISCUSSION The patient interviewed, chart reviewed. Obtained information from nursing staff. The patient compliant, cooperative. Mood sad, dysphoric, flat affect, guarded. Vital Signs: 98.4, 103, 159/113. The patient still feeling anxious, nervous, guarded, paranoid, mood lability. The patient denied any thoughts of harming self or others but still having withdrawal symptom. Anxious, nervous. Complete Review of Systems: Unremarkable. MENTAL STATUS EXAMINATION General Appearance: The patient dressed casually. Attention span, concentration: Fair. Oriented in time, place, and person. Mood and affect: Sad, depressed. Speech: Monotone. Thought process: [place]. The patient denied any thoughts of harming self or others. Recent and remote memory: Poor. Insight and judgment: Poor. DIAGNOSES 1. Alcohol use disorder, severe. 2. Mood disorder not otherwise specified. ASSESSMENT/PLAN Advised to continue with current medication and therapeutic protocol. If needed, consider further adjustment of medication. Dictated by... Abelardo Bello/ernie TD: 12/19/2016 11:46 JOB #: [id number] Unit #: [id number] #: [id number] Patient: DIPTI GODWIN PROGRESS NOTES Page 1 of 1 X Cole Landa MD X PROGRESS NOTE
--- NOTE | ~2016-12-14 | PA ---
Unit #: [id number] #: [id number] Patient: DIPTI GODWIN [id number] [facility] [address] [place] [address] [id number] I MR#: [id number] NAME: DIPTI GODWIN ROOM: P183 Age: 36 Sex: M Admission Date: 12/14/2016 : 1980 Date of Assessment: Attending Physician: Cole Landa M.D. Admitting Physician: Cole Landa M.D. Primary Care Physician: Generic Doctor Not In System PSYCHIATRIC ASSESSMENT INFORMANTS The patient reliability, fair informant and chart reliability, good. CHIEF COMPLAINT Relapse from alcohol and depression. HISTORY OF PRESENT ILLNESS Mr. Ramos is a 36-year-old male, presented with alcohol intoxication at the [facility]. The patient was having a seizure and hit his head. The patient's BA level was 0.357. The patient has a history of alcohol dependence and history of seizure disorder. The patient diagnosed with borderline personality disorder and mood disorder, [facility] presented with the above-mentioned complaint. The patient has a history of tobacco use, age of onset 15; alcohol, age of onset 17; and marijuana, age of onset 16. Longest period of sobriety 18 months and last period of sobriety years ago. The patient denied any use of any IV drug use. Withdrawal symptoms as mentioned above. History of hepatitis and blackouts. The patient currently presenting with depressed mood, headache, irritability, nervousness, poor appetite, poor concentration, restlessness, sleep problems, withdrawal seizures, and tremors. Needing inpatient admission at this time for psychiatric stabilization. PAST PSYCHIATRIC HISTORY Remarkable for history of previous admission on 12/03/2016. History of outpatient treatment. FAMILY HISTORY AND SOCIAL HISTORY The patient has a poor support system. Unemployed. No history of abuse. The patient reported history of substance abuse in mom and dad. No legal charges. MEDICAL HISTORY Remarkable for history of withdrawal seizures and history of scoliosis. Musculoskeletal; muscle strength and tone, no atrophy or abnormal movement. Gait normal. MEDICATION HISTORY The patient when last discharged was on Desyrel 100 mg at bedtime, Celexa 20 mg daily, and Proventil inhaler p.r.n. ALLERGIES No known drug allergies. Unit #: [id number] #: [id number] Patient: DIPTI GODWIN SUBSTANCE ABUSE HISTORY Please see above. REVIEW OF SYSTEMS HEENT: Eyes, clear. Ears, nose, mouth, and throat; clear. CARDIOVASCULAR: Unremarkable. RESPIRATORY: Unremarkable. GI: Unremarkable. : Unremarkable. SKIN: Unremarkable. LYMPH NODE: Unremarkable. NEUROLOGIC: Unremarkable. ENDOCRINE: Unremarkable. HEMATOLOGIC: Unremarkable. ALLERGIC/IMMUNOLOGIC: Unremarkable. MUSCULOSKELETAL: Muscle strength and tone, no atrophy or abnormal movement. Gait normal. MENTAL STATUS EXAMINATION CONSTITUTIONAL: Measurement of vital signs; temperature 97.8, heart rate 103, respiratory rate 16, and blood pressure 131/92. Height 5 feet 6 inches and weight 135 pounds. GENERAL APPEARANCE: The patient dressed casually. The patient did not show any facial deformity. MUSCULOSKELETAL: Please see above. PSYCHIATRIC EXAMINATION Description of speech; slow in volume and rate. Description of thought process, circumstantial. Description of association, guarded. Description of abnormal psychotic thinking; guarded, paranoid, mood lability, depression, and substance abuse. Denied any suicidal or homicidal ideation, but sad and depressed. Description of the patient's judgment: Concerning everyday activity, poor. Social situation, poor. Concerning psychiatric condition, poor. Complete mental status examination; oriented in time, place, and person. Recent and remote memory, fair. Attention span and concentration, fair. Language, able to name object and repeat phrases. Fund of knowledge, aware of current event and passive vocabulary intact. Mood and affect, sad and dysphoric. Insight and judgment, fair to poor. ASSETS AND LIABILITIES Assets, the patient is articulate and able to take care of his ADL. Liability, history of depression and substance abuse. ADMITTING DIAGNOSES Psychiatric: Alcohol use disorder, severe, F10.20 and major depressive disorder, recurrent, severe, F33.2. Secondary diagnosis: Deferred. Medical diagnosis: History of withdrawal seizure. Stressors: Psychosocial stressors, unemployment, and housing problem. PSYCHIATRIC PLAN AND TREATMENT GOAL AND DISCHARGE PLAN 1. Advised to admit the patient on the inpatient unit. Provide safe, supportive, and structured environment. Unit #: [id number] #: [id number] Patient: DIPTI GODWIN 2. Ordered labs; CBC, CMP, UA, and UDS. 3. Precaution for self-harm, detox protocol, and detox monitoring. 4. Advised to resume home medication. If needed, consider further adjustment of medication. The patient to attend all the programing, group therapy, individual therapy, chemical dependency group. TREATMENT GOAL To attain euthymic mood, gain insight into his problem, and learn coping skills. DISCHARGE PLAN Plan to stabilize the patient and consider followup in outpatient program. ESTIMATED LENGTH OF STAY 3 to 5 days. Dictated by... Abelardo Bello/yassine TD: 12/14/2016 15:44 JOB #: [id number] PSYCHIATRIC ASSESSMENT Page 1 of 1 X Cole Landa MD X PSYCHIATRIC ASSESSMENT
--- NOTE | ~2016-12-14 | PN ---
Unit #: [id number] #: [id number] Patient: DIPTI GODWIN [id number] [facility] [address] [place] [address] [id number] MR#: [id number] NAME: DIPTI GODWIN ROOM: 83 Age: 36 Sex: M Admission Date: 12/14/2016 : 1980 Attending Physician: Cole Landa M.D. Admitting Physician: Cole Landa M.D. Primary Care Physician: Generic Doctor Not In System [facility] PROGRESS NOTES DATE 12/15/2016 DISCUSSION Mr. Ramos is a 36-year-old male seen on 12/15/2016. Patient interviewed. Chart reviewed. Obtained information from nursing staff. Patient's vital signs 97.9, 78, 124/84. Patient still reporting anxious, nervous, withdrawn, having withdrawal symptoms, sad, depressed, anxious. Patient was admitted with seizure, withdrawals from alcohol. Patient still withdrawn, isolative, flat affect, sad, dysphoric mood. Complete review of system unremarkable. MENTAL STATUS EXAMINATION General appearance, patient dressed casually. Attention span, concentration fair. Oriented in time, place and person. Mood and affect sad, depressed, flat affect, withdrawn, isolative, seclusive. Recent and remote memory poor. Insight and judgement poor. DIAGNOSES 1. Alcohol use disorder, severe. 2. Mood disorder NOS. ASSESSMENT/PLAN Advised to continue with current medication and therapeutic protocol. If needed, consider further adjustment of medication. Dictated by... Abelardo Bello/sidra TD: 12/15/2016 20:29 JOB #: [id number] Unit #: [id number] #: [id number] Patient: DIPTI GODWIN [facility] PROGRESS NOTES Page 1 of 1 X Cole Landa MD X PROGRESS NOTE
== END 2016-12-19 10:30 | DRG 897 ==
LOC: P1E 08:22
PROC: HZ2ZZZZ Detoxification Services for Substance Abuse Treatment (ICD-10-PCS; principal; 2016-12-14)
DX: F10.20 Alcohol dependence, uncomplicated (principal); F33.2 Major depressive disorder, recurrent severe without psychotic features; M41.9 Scoliosis, unspecified
CPT/HCPCS: 86592